=== PATIENT | female | born 1965 | race Caucasian/White ===

== ENCOUNTER 2019-09-26 12:08 | Emergency (ER) | payer SELFPAY ==
[~2019-09-26] VITALS: Ht 170.2 cm; Wt 102.0 kg
[~2019-09-26 12:08] MED LIST: ASPI-496 PO; DIABETIC MEDS; DULA1.5P SQ; INSU200I4 SC; INSU500V SC; IRBE300T40 PO; METF100010 PO; ROSU10TA2 PO
[2019-09-26] MEDS ORDERED: LOSA100T14 PO (12:32)
[2019-09-26] MEDS ORDERED: INSU500I SQ-INSULIN ×2 (12:34→12:35)
--- NOTE | 2019-09-26 12:43 | NUR ---
PT BIB [facility] FOR HTN OVER NORMAL BEGINNING YESTERDAY. PT ALSO C/O DENTAL PAIN X 3 WEEKS AND ON SECOND COURSE OF AMOXICILLIN S/P TOOTH EXTRACTION 3 WEEKS AGO.
[2019-09-26] MEDS ORDERED: ACETAMINOPHEN 500 MG TABLET ONE (12:49)
[2019-09-26 13:23] LABS: BASOPHILS # (AUTO) 0.05 x10^3/uL (0-0.1); BASOPHILS % (AUTO) 1 % (0-1); EOSINOPHILS # (AUTO) 0.18 x10^3/uL (0-0.4); EOSINOPHILS % (AUTO) 3 % (1-7); LYMPHOCYTES # (AUTO) 1.41 x10^3/uL (1-3.4); LYMPHOCYTES % (AUTO) 20 % (22-44); MD NO; MEAN CORPUSCULAR HEMOGLOBIN 30.7 pg (27.0-34.8); MEAN CORPUSCULAR HGB CONC 33.4 g/dL (32.4-35.8); MEAN CORPUSCULAR VOLUME 91.9 fL (80-100); MONOCYTES # (AUTO) 0.44 x10^3/uL (0.2-0.8); MONOCYTES % (AUTO) 6 % (2-9); NEUTROPHILS # (AUTO) 5.08 x10^3/uL (1.8-6.8); NEUTROPHILS % (AUTO) 71 % (42-75); PLATELET COUNT 238 x10^3/uL (130-400); RED BLOOD COUNT 4.46 x10^6/uL (3.82-5.3); RED CELL DISTRIBUTION WIDTH 12.6 % (9.6-15.2)
[2019-09-26 13:29] LABS: ALBUMIN 2.9 g/dL (3.4-5.0); ANION GAP 7 mmol/L (5-15); CHLORIDE 111 mmol/L (98-107); CREATININE 0.89 mg/dL (0.55-1.02)
[2019-09-26 15:11] VITALS: BP 189/96
--- NOTE | 2019-09-26 15:29 | NUR ---
Patient/Caregiver given discharge instructions and they have confirmed that they understand the instructions. Patient ambulatory with steady gait. COVID S/S INFORMATION SHEET PORVIDED
== END 2019-09-26 15:30 | disposition home or self-care (01) ==
LOC: ED 12:21
DX: K02.9 Dental caries, unspecified (principal); K08.89 Other specified disorders of teeth and supporting structures; M79.10 Myalgia, unspecified site; I10 Essential (primary) hypertension; E10.9 Type 1 diabetes mellitus without complications; Z90.49 Acquired absence of other specified parts of digestive tract; Z90.710 Acquired absence of both cervix and uterus; Z85.42 Personal history of malignant neoplasm of other parts of uterus
CPT/HCPCS: 71045; 80048; 82040; 82962; 85025; 93005; 99285